=== PATIENT | female | born 1970 | race Caucasian/White ===

== ENCOUNTER → 2019-01-16 | Outpatient (CLI) | payer OTHER ==
[2015-02-10 06:48] VITALS: BP 122/80
== END | disposition home or self-care (01) ==
LOC: PF 07:49
PROVIDERS: ATTEND Internal Medicine Pulmonary Disease
DX: M79.7 Fibromyalgia (principal); F17.210 Nicotine dependence, cigarettes, uncomplicated
CPT/HCPCS: 94010